=== PATIENT | female | born 1995 | race Caucasian/White ===

== ENCOUNTER 2017-03-03 14:57 | Emergency (ER) | payer OTHER ==
--- NOTE | 2017-03-03 15:20 | EDPHY ---
H & P Time Seen by Provider: 03/03/17 15:05 HPI/ROS: CHIEF COMPLAINT: Laceration right hand HISTORY OF PRESENT ILLNESS: 21-year-old female presents to the emergency department with a laceration to her right hand. Patient was at home and stuck her hand in a glass and subsequently sustained a laceration to the right thumb. She is right-hand dominant. She was able to control the bleeding with firm direct pressure. She denies any other trauma or injury. She believes her tetanus shot is current. ROS: Denies numbness or tingling in her fingers, retained foreign body, pain in her right wrist or other injuries. Past Medical/Surgical History: Negative Social History: Bobby at [employer] studying [employer] Smoking Status: Never smoked Physical Exam: On examination the patient has a 4 cm complex flap laceration noted over the dorsal aspect of her right thumb overlying MCP joint. She has full range of motion of her right thumb. She has no active bleeding noted. No palpable bony tenderness. Normal sensation to light touch with normal 2 point discrimination. Constitutional: Initial Vital Signs Temperature (C) 36.6 C 03/03/17 15:01 Heart Rate 69 03/03/17 15:01 Respiratory Rate 20 03/03/17 15:01 Blood Pressure 68/46 L 03/03/17 15:01 O2 Sat (%) 100 03/03/17 15:01 O2 Delivery Mode Room Air Allergies/Adverse Reactions: No Known Allergies Allergy (Unverified 03/03/17 15:00) Home Medications: Medication Instructions Recorded Cephalexin [Keflex] 500 mg PO QID #28 cap 03/03/17 MIRENA 03/03/17 MDM/Departure - MDM Procedures: Laceration repair. Verbal consent was obtained from the patient. The 3 cm laceration on the dorsal right thumb was anesthetized using 1% lidocaine with epinephrine. The wound was irrigated with saline, draped and explored to its base with a gloved finger. Injury to aponeurosis. The wound was repaired with 4 0 Ethilon, 5 sutures. The wound repair was simple. The procedure was performed by myself. ED Course/Re-evaluation: 21-year-old female presents to the emergency department with a laceration to the right thumb. Injury extends into the adductor aponeurosis. She does however seemed to have full range of motion of her right thumb. Because this is on her dominant hand, she will be followed up by orthopedic hand surgeon, Dr. Huy Gonzalez. The skin was closed, see procedure note. She was placed in thumb spica splint and started on Keflex. She will follow up with Dr. Huy Gonzalez tomorrow or to recheck. Patient verbalized understanding and agreed. - Depart Disposition: Home, Routine, Self-Care Clinical Impression: Laceration of right thumb Qualifiers: Encounter type: initial encounter Damage to nail status: without damage Foreign body presence: without foreign body Qualified Code(s): S61.011A - Laceration without foreign body of right thumb without damage to nail, initial encounter Condition: Good Instructions: Care For Your Stitches (ED), Laceration (ED), Acute Wounds (ED) Additional Instructions: Keflex 500 mg 4 times daily for 1 week. Keep splint on until follow-up with orthopedic hand surgeon tomorrow or to recheck. Tell them that you were seen in the emergency department and you have a possible extensor aponeurosis injury of your right thumb on your dominant hand. Wound Care Follow-Up: Removal of sutures in 10 days. Suture removal is complimentary in uncomplicated cases. Infection or abnormal findings would require reevaluation by the MD. In that case, you may be billed. Return to the emergency department if you notice any signs or symptoms of infection such as redness, swelling, increased pain, fever, purulent drainage. Prescriptions: Cephalexin [Keflex] 500 mg PO QID #28 cap Referrals: Huy Gonzalez MD [Medical Doctor] - 1-2 days without fail (On-call hand surgeon)
[2017-03-03 16:44] VITALS: BP 105/68; PULSE 75; RESP 18; TEMP 99.3; O2SAT 94
== END 2017-03-03 16:44 | disposition home or self-care (01) ==
PROC: 0HQFXZZ Repair Right Hand Skin, External Approach (ICD-10-PCS; principal; 2017-03-03)
DX: S61.011A Laceration without foreign body of right thumb without damage to nail, initial encounter (principal); W25.XXXA Contact with sharp glass, initial encounter; Y99.8 Other external cause status; Y93.89 Activity, other specified
CPT/HCPCS: L3807